=== PATIENT | male | born 1950 | race Hispanic/Latino ===

== ENCOUNTER 2018-11-03 13:32 | Outpatient (CLI) | payer MEDICARE ==
--- NOTE | 2018-11-03 14:38 | RAD ---
TWO VIEWS CHEST: Date: 11-03-18 Provided Clinical History: Chronic kidney disease. Comparison: 07-31-14 FINDINGS: Cardiac and mediastinal silhouette are within normal limits. No focal consolidation, pleural fluid or pneumothorax apparent. IMPRESSION: No evidence for an acute cardiopulmonary process. POS: TPC
== END 2018-11-03 13:33 | disposition home or self-care (01) ==
LOC: BICRAD 13:32
PROVIDERS: ATTEND Internal Medicine Nephrology
DX: N18.5 Chronic kidney disease, stage 5 (principal)
CPT/HCPCS: 36415; 71046; 80048; 86704; 86706; 86803; 87340

== ENCOUNTER 2018-11-14 13:34 | Outpatient (CLI) | payer MEDICARE ==
[2018-11-14 14:47] LABS: #Eosinphils 0.2 thou/uL (0.0-0.7); #Lymphocytes 1.4 thou/uL (1.20-3.40); #Monocytes 0.5 thou/uL (0.11-0.59); %Basophils 0.2 % (0.0-1.0); %Eosinophils 2.3 % (0.0-10.0); %Lymphocytes 19.7 % (21.0-51.0); %Neutrophils 70.9 % (42.0-75.0); Hemoglobin 12.5 g/dL (14.0-18.0); Mean Corpuscular HGB CONC 33.8 g/dL (32.0-36.0); Mean Corpuscular Hemoglobin 30.5 pg (27.0-31.0); Mean Corpuscular Volume 90.4 fL (78.0-98.0); Mean Platelet Volume 9.9 fL (7.4-10.4); Platelet Count 142 thou/uL (130-400); RBC Distribution Width 12.2 % (11.5-14.5); Red Blood Cell (RBC) Count 4.08 mill/uL (4.70-6.10); White Blood Cell (WBC) Count 7.1 thou/uL (4.8-10.8)
[2018-11-14 15:08] LABS: Anion Gap 13 mmol/L (10-20); BUN (Urea Nitrogen) 77 mg/dL (8.4-25.7); Calc. Creatinine Clearance 0 mL/min (70-130); Calcium 9.3 mg/dL (7.8-10.44); Carbon Dioxide 26 mmol/L (23-31); Chloride 102 mmol/L (98-107); Estimated GFR-MDRD 9; Glucose 290 mg/dL (80-115); Potassium 4.8 mmol/L (3.5-5.1); Sodium 136 mmol/L (136-145)
--- NOTE | 2018-11-15 22:57 | EKG ---
Test Reason : Blood Pressure : / mmHG Vent. Rate : 078 BPM Atrial Rate : 078 BPM P-R Int : 158 ms QRS Dur : 112 ms QT Int : 406 ms P-R-T Axes : 058 -39 012 degrees QTc Int : 462 ms Normal sinus rhythm Left axis deviation Abnormal ECG When compared with ECG of 18-AUG-2000 07:48, Questionable change in QRS duration Confirmed by Norm MANUEL ([id number]) on 11/15/2018 10:57:08 PM Referred By: ARMIN Confirmed By:Norm MANUEL
== END 2018-11-14 13:35 | disposition home or self-care (01) ==
LOC: LABBT 13:34
PROVIDERS: ATTEND Surgery
DX: Z01.818 Encounter for other preprocedural examination (principal); N18.6 End stage renal disease; K42.9 Umbilical hernia without obstruction or gangrene
CPT/HCPCS: 80048; 85025; 93005; 93010

== ENCOUNTER 2018-11-18 05:50 | Day surgery (SDC) | payer MEDICARE ==
[2018-11-14 13:59] VITALS: BMI 32.3
[2018-11-18] MEDS ORDERED: ceFAZolin Sodium (SDC) 2 GM/100 ML BAG ONE (06:16)
[2018-11-18] MEDS ORDERED: Fentanyl 100 MCG/2 ML VIAL ONE (06:44)
[2018-11-18] MEDS ORDERED: Bupivacaine/Epinephrine 0.25% 30 ML VIAL ONE (06:52)
[2018-11-18] MEDS ORDERED: Heparin 5,000 UNITS/ML VIAL ONE (06:53)
[2018-11-18] MEDS ORDERED: Heparin 10,000 UNITS/1 ML VIAL ONE (07:03)
[2018-11-18] MEDS ORDERED: HYDROcodone/Acetaminophen 5/325 mg Tablet ONE (11:39)
[2018-11-18] MEDS ORDERED: Ondansetron PF 4 MG/2 ML Vial ONE (17:05)
[2018-11-18] MEDS ORDERED: Rocuronium Bromide 10 MG/ML (10ML VIAL) ONE (17:05)
[2018-11-18] MEDS ORDERED: PROPOFOL 200 MG/20 ML VIAL ONE (17:05)
[2018-11-18] MEDS ORDERED: ePHEDrine 50 MG/ML VIAL ONE (17:05)
[2018-11-18] MEDS ORDERED: Glycopyrrolate 0.2 MG/ML 5 ML SYRINGE ONE (17:05)
[2018-11-18] MEDS ORDERED: Lidocaine 1% PF 5 ML VIAL ONE (17:05)
--- NOTE | 2018-11-21 12:40 | OP ---
DATE OF PROCEDURE: 11/18/2018 PROCEDURE PERFORMED: Repair of umbilical hernia with mesh and placement of laparoscopic peritoneal dialysis catheter. PREOPERATIVE DIAGNOSIS: End-stage renal disease and umbilical hernia. POSTOPERATIVE DIAGNOSIS: End-stage renal disease and umbilical hernia. HISTORY: Mr. Driver is a 68-year-old man with progressive renal failure, who will require dialysis in the near future. He has decided to proceed with peritoneal dialysis. He was found incidentally to have a small umbilical hernia, which was not reducible. The repair of this under the same anesthesia was recommended. DESCRIPTION OF PROCEDURE: After informed consent was obtained and appropriate preoperative antibiotics administered, the patient was taken to the operating room. He was placed in supine position and general endotracheal anesthesia was administered. He was prepped and draped in a standard sterile fashion and local anesthesia infused at the level of the umbilicus. A periumbilical incision was made and dissection carried down to the umbilical hernia. This was found to be primarily preperitoneal fat protruding through a 1 cm defect. Dissection was carried down through the preperitoneal fat of the peritoneum, which was entered. The trocar was placed through the hernia sac into the abdominal cavity and carbon dioxide gas insufflated to an intraabdominal pressure of 15, for which the patient tolerated well. The intraabdominal space was carefully examined. There was no evidence of trocar injury or significant adhesion. Local anesthesia was infused through skin and subcutaneous tissues on the patient's right abdomen and a 5 mm trocar placed under direct laparoscopic vision. The small intestines were easily able to be brought up out of the pelvis. There were no significant adhesions. The lower edge of the posterior rectus sheath was identified laparoscopically and local anesthesia infused through skin and subcutaneous tissues. A skin incision was made and an 8 mm trocar tunneled superiorly, medially, and then down through the posterior rectus sheath. A peritoneal dialysis catheter was placed through the 8 mm trocar and brought down into the pelvis, but did not reach down into the pelvic cul-de-sac. The trocar was removed and the fascial defect closed with a GraNee needle. An exit site inferior to the original site was identified and local anesthesia infused there. The trocar was tunneled directly inferior through this site and to the peritoneal dialysis catheter, easily down to the pelvis. The internal cup was positioned to be within the rectus muscle and the trocar was removed leaving the external cuff in the subcutaneous tissues. Saline was infused and easily drained through the peritoneal dialysis catheter. The catheter was flushed with heparin and clamped. The right-sided trocar was removed and the fascial defect closed under direct vision with a GraNee needle. The abdomen was allowed to desufflate and the umbilical trocar removed. The peritoneal incision was closed with 3-0 Monocryl suture and the preperitoneal space dissected free with blunt dissection. A 4.2 cm mesh was placed into the preperitoneal space and flattened out. The fascial defect was then closed with interrupted permanent suture incorporating a central strap into the closure. The subcutaneous tissues were then reapproximated with interrupted 3-0 Monocryl sutures and all skin incisions were closed with 4-0 Monocryl subcuticular sutures. The incision at the exit site of the peritoneal dialysis catheter was snugged up around the catheter and Dermabond was placed at all incision sites. Once the Dermabond was dry, pressure dressing was placed at the umbilicus. The peritoneal dialysis catheter was dressed with mesh and Tegaderm, and the patient was extubated and taken to Recovery in good condition. Estimated blood loss was minimal. There were no complications. There were no specimens. Job ID: [id number]
== END 2018-11-18 11:45 | disposition home or self-care (01) ==
LOC: SDC 05:50
PROVIDERS: ATTEND Surgery
PROC: 0WUF0JZ Supplement Abdominal Wall with Synthetic Substitute, Open Approach (ICD-10-PCS; principal; 2018-11-18)
PROC: 0WHG43Z Insertion of Infusion Device into Peritoneal Cavity, Percutaneous Endoscopic Approach (ICD-10-PCS; 2018-11-18)
DX: I12.0 Hypertensive chronic kidney disease with stage 5 chronic kidney disease or end stage renal disease (principal); E11.22 Type 2 diabetes mellitus with diabetic chronic kidney disease; N18.6 End stage renal disease; K42.9 Umbilical hernia without obstruction or gangrene; G47.30 Sleep apnea, unspecified; I42.9 Cardiomyopathy, unspecified; E11.21 Type 2 diabetes mellitus with diabetic nephropathy; Z79.4 Long term (current) use of insulin; Z79.899 Other long term (current) drug therapy
CPT/HCPCS: 36416; J0690; J1644; J2001; J2405; J2704; J3010; J3490

== ENCOUNTER 2019-02-21 08:22 | Outpatient (CLI) | payer MEDICARE ==
--- NOTE | 2019-02-21 09:35 | RAD ---
ABDOMEN ONE VIEW: HISTORY: Breakdown of dialysis catheter, not draining properly. FINDINGS: The bowel gas pattern is unremarkable. The visualized portions of the dialysis catheter appear intact . There are degenerative changes in the spine. POS: OFF
== END 2019-02-21 08:23 | disposition home or self-care (01) ==
LOC: BICRAD 08:22
PROVIDERS: ATTEND Internal Medicine Nephrology
DX: T85.611A Breakdown (mechanical) of intraperitoneal dialysis catheter, initial encounter (principal)
CPT/HCPCS: 74018

== ENCOUNTER 2019-04-14 05:57 | Day surgery (SDC) | payer MEDICARE ==
[2019-04-13 10:00] VITALS: BMI 33.3
[2019-04-14] MEDS ORDERED: Fentanyl 100 MCG/2 ML VIAL ONE (06:39)
[2019-04-14 06:51] LABS: #Eosinphils 0.1 thou/uL (0.0-0.7); #Lymphocytes 1.3 thou/uL (1.20-3.40); #Monocytes 0.6 thou/uL (0.11-0.59); #Neutrophils 5.3 thou/uL (1.40-6.50); %Basophils 0.2 % (0.0-1.0); %Eosinophils 1.9 % (0.0-10.0); %Lymphocytes 17.2 % (21.0-51.0); %Monocytes 7.6 % (0.0-10.0); %Neutrophils 73.1 % (42.0-75.0); Hemoglobin 14.1 g/dL (14.0-18.0); Mean Corpuscular HGB CONC 33.8 g/dL (32.0-36.0); Mean Corpuscular Hemoglobin 31.4 pg (27.0-31.0); Mean Corpuscular Volume 92.8 fL (78.0-98.0); Mean Platelet Volume 9.6 fL (7.4-10.4); Platelet Count 123 thou/uL (130-400); RBC Distribution Width 12.6 % (11.5-14.5); Red Blood Cell (RBC) Count 4.48 mill/uL (4.70-6.10); White Blood Cell (WBC) Count 7.2 thou/uL (4.8-10.8)
[2019-04-14 07:12] LABS: Anion Gap 12 mmol/L (10-20); BUN (Urea Nitrogen) 54 mg/dL (8.4-25.7); Calc. Creatinine Clearance 21 mL/min (70-130); Calcium 9.2 mg/dL (7.8-10.44); Carbon Dioxide 29 mmol/L (23-31); Chloride 101 mmol/L (98-107); Estimated GFR-MDRD 14; Glucose 163 mg/dL (80-115); Potassium 4.6 mmol/L (3.5-5.1); Sodium 137 mmol/L (136-145)
[2019-04-14] MEDS ORDERED: Lidocaine 1% w/Epinephrine 1:100K 20 ML VIAL ONE (07:21)
[2019-04-14] MEDS ORDERED: Bupivacaine 0.25% HCL 30 ML VIAL ONE (07:21)
[2019-04-14] MEDS ORDERED: Heparin 10,000 UNITS/1 ML VIAL ONE (07:21)
[2019-04-14] MEDS ORDERED: traMADol HCl 50 MG TAB ONE (10:30)
[2019-04-14] MEDS ORDERED: Lidocaine 1% PF 5 ML VIAL ONE (14:38)
[2019-04-14] MEDS ORDERED: Metoclopramide HCl 10 MG/2 ML VIAL ONE (14:38)
[2019-04-14] MEDS ORDERED: Glycopyrrolate 0.2 MG/ML 5 ML SYRINGE ONE (14:38)
[2019-04-14] MEDS ORDERED: Rocuronium Bromide 10 MG/ML (10ML VIAL) ONE (14:38)
[2019-04-14] MEDS ORDERED: Ondansetron PF 4 MG/2 ML Vial ONE (14:38)
[2019-04-14] MEDS ORDERED: PROPOFOL 200 MG/20 ML VIAL ONE (14:38)
--- NOTE | 2019-04-14 15:08 | PDOC.OP ---
Operative Note - Operative Note Operative Note: PROCEDURE: Diagnostic laparoscopy SURGEON: Chrissy Garza M.D. DATE: 04/14/2019 PREOPERATIVE DIAGNOSIS: Malfunctioning peritoneal dialysis catheter POSTOPERATIVE DIAGNOSIS: Malfunctioning peritoneal dialysis catheter without adhesions or malpositioning HISTORY: Patient with peritoneal dialysis catheter which infuses fine but has difficulty draining. On KUB this did not appear to be positioned as low in the pelvis as it is ideal. Laxatives and Cathflo have not helped the situation. Recommendation was made to proceed with laparoscopic revision versus replacement of the catheter. PROCEDURE IN DETAIL: After informed consent was obtained and appropriate and buttocks were administered the patient was taken to the operating room where he was placed in supine position and general anesthesia administered. The peritoneal dialysis catheter was soaked in disinfectant for several minutes and then the abdomen and catheter prepped and draped in standard sterile fashion. Carbon dioxide gas was infused through the peritoneal dialysis catheter into the abdominal cavity until an intra-abdominal pressure 15 was reached. Local anesthesia was infused the skin and subcutaneous tissues at the right upper quadrant and left upper quadrant and 5 mm laparoscopic trochars placed. The first one was placed using a ClearView port and the second was placed under direct laparoscopic vision. The patient was placed in Trendelenburg and the dialysis catheter examined. This was clearly in the deepest part of the pelvis between the bladder and the colon and there were no small bowel loops or omentum in the vicinity. There were multipe appendices epiploica of the sigmoid colon but these were also not in the vicinity of the catheter. The omentum was too short to reach down into the vicinity of the catheter. The catheter was pulled up out of the pelvis and examined and there was no evidence of clogging of the holes or the lumen or any scar tissue around the catheter. The end of the catheter was then placed back into the sulcus and flushed with heparinized saline and a new sterile extension tubing set placed to the external portion. The right upper quadrant trocar was removed and a 0 Vicryl GraNee suture used to bridge the fascial defect under direct laparoscopic vision. The trocar was then replaced through the same hole and the left upper quadrant trocar removed and the fascial defect bridged with a 0 Vicryl suture on a GraNee needle under direct laparoscopic vision. This was fastened down and gas desufflated through the right upper quadrant trocar. Once the abdomen was desufflated the fascial suture at the right upper quadrant trocar was secured as well. Skin incisions were closed with 4-0 Monocryl, and Dermabond dressings were placed. Estimated blood loss was minimal. There were no complications. There were no specimens..
== END 2019-04-14 10:49 | disposition home or self-care (01) ==
LOC: SDC 05:57
PROVIDERS: ATTEND Surgery
PROC: 0WJG4ZZ Inspection of Peritoneal Cavity, Percutaneous Endoscopic Approach (ICD-10-PCS; principal; 2019-04-14)
DX: T85.691A Other mechanical complication of intraperitoneal dialysis catheter, initial encounter (principal); I12.0 Hypertensive chronic kidney disease with stage 5 chronic kidney disease or end stage renal disease; E11.22 Type 2 diabetes mellitus with diabetic chronic kidney disease; N18.6 End stage renal disease; Z79.4 Long term (current) use of insulin; Z79.82 Long term (current) use of aspirin; Z79.899 Other long term (current) drug therapy; Z99.2 Dependence on renal dialysis
CPT/HCPCS: 36415; 80048; 85025; J0690; J1642; J1644; J2001; J2405; J2704; J2765; J3010; S0020

== ENCOUNTER 2021-01-12 11:54 | Emergency (ER) | payer MEDICARE ==
[2021-01-12 13:08] LABS: #Lymphocytes 0.4 thou/uL (1.20-3.40); #Monocytes 0.8 thou/uL (0.11-0.59); #Neutrophils 11.3 thou/uL (1.40-6.50); %Basophils 0.1 % (0.0-1.0); %Lymphocytes 3.1 % (21.0-51.0); %Monocytes 6.4 % (0.0-10.0); %Neutrophils 90.3 % (42.0-75.0); Mean Corpuscular HGB CONC 35.6 g/dL (32.0-36.0); Mean Corpuscular Hemoglobin 32.2 pg (27.0-31.0); Mean Corpuscular Volume 90.3 fL (78.0-98.0); Mean Platelet Volume 8.3 fL (7.4-10.4); Platelet Count 145 thou/uL (130-400); RBC Distribution Width 11.9 % (11.5-14.5); Red Blood Cell (RBC) Count 4.03 mill/uL (4.70-6.10); White Blood Cell (WBC) Count 12.5 thou/uL (4.8-10.8)
[2021-01-12 13:25] LABS: ALT (SGPT) 48 U/L (8-55); AST (SGOT) 43 U/L (5-34); Albumin 3.1 g/dL (3.4-4.8); Alkaline Phosphatase 86 U/L (40-110); Anion Gap 22 mmol/L (10-20); BUN (Urea Nitrogen) 111 mg/dL (8.4-25.7); Bilirubin, Total 0.5 mg/dL (0.2-1.2); Calc. Creatinine Clearance 0 mL/min (70-130); Calcium 7.1 mg/dL (7.8-10.44); Carbon Dioxide 21 mmol/L (23-31); Chloride 89 mmol/L (98-107); Globulin 3.3 g/dL (2.4-3.5); Glucose 152 mg/dL (80-115); Potassium 3.7 mmol/L (3.5-5.1); Protein, Total 6.4 g/dL (5.8-8.1); Sodium 128 mmol/L (136-145)
== END 2021-01-12 14:30 | disposition home or self-care (01) ==
LOC: ERS 11:54
DX: U07.1 COVID-19 (principal); E11.22 Type 2 diabetes mellitus with diabetic chronic kidney disease; E11.65 Type 2 diabetes mellitus with hyperglycemia; N18.6 End stage renal disease; E78.5 Hyperlipidemia, unspecified; E78.00 Pure hypercholesterolemia, unspecified
CPT/HCPCS: 36415; 36416; 80053; 85025; 99285

== ENCOUNTER 2021-01-21 06:32 | Inpatient (IN) | payer MEDICARE, OTHER ==
[2021-01-21 07:19] LABS: Hemoglobin 12.3 g/dL (14.0-18.0); Mean Corpuscular HGB CONC 34.9 g/dL (32.0-36.0); Mean Corpuscular Volume 91.7 fL (78.0-98.0); Mean Platelet Volume 7.2 fL (7.4-10.4); Platelet Count 357 thou/uL (130-400); RBC Distribution Width 11.9 % (11.5-14.5); Red Blood Cell (RBC) Count 3.85 mill/uL (4.70-6.10); White Blood Cell (WBC) Count 36.6 thou/uL (4.8-10.8)
[2021-01-21 07:49] LABS: BUN (Urea Nitrogen) 128 mg/dL (8.4-25.7)
[2021-01-21 07:50] LABS: Band 9 % (5-11); Lymphocytes 3 % (21-51); MDiff Complete? YES; Monocytes 6 % (0-10); Neutrophil 82 % (42-75); Platelet Morphology Comment Appears Adequate; RBC Morphology Normal
[2021-01-21] MEDS ORDERED: Piperacillin/Tazobactam 3.375 GM VIAL ONE (07:55)
[2021-01-21] MEDS ORDERED: Vancomycin 1 GM/200 ML BAG ONE (07:55)
[2021-01-21 07:58] LABS: CKMB 1.9 ng/mL (0-6.6)
[2021-01-21 07:59] LABS: ALT (SGPT) 45 U/L (8-55); AST (SGOT) 29 U/L (5-34); Albumin 2.7 g/dL (3.4-4.8); Alkaline Phosphatase 129 U/L (40-110); Anion Gap 26 mmol/L (10-20); Bilirubin, Total 0.5 mg/dL (0.2-1.2); Calc. Creatinine Clearance 0 mL/min (70-130); Calcium 7.3 mg/dL (7.8-10.44); Carbon Dioxide 19 mmol/L (23-31); Chloride 90 mmol/L (98-107); Globulin 4.5 g/dL (2.4-3.5); Glucose 119 mg/dL (80-115); Potassium 3.6 mmol/L (3.5-5.1); Protein, Total 7.2 g/dL (5.8-8.1); Sodium 131 mmol/L (136-145)
[2021-01-21] MEDS ORDERED: Piperacillin/Tazobactam 4.5 GM in Sodium Chloride 0.9% 100 ML IVPB SCH (08:00)
[2021-01-21] MEDS ORDERED: Iopamidol-370 76% 500 ML 1 ML ONE (08:58)
[2021-01-21] MEDS ORDERED: Guaifenesin DM 100-10/5 ML UDCUP PO PRN (09:08)
[2021-01-21] MEDS ORDERED: Calcium Carbonate 500 MG ChewTAB PO PRN (09:08)
[2021-01-21] MEDS ORDERED: HYDROcodone/Acetaminophen 5/325 mg Tablet PO PRN (09:08)
[2021-01-21] MEDS ORDERED: Senokot S 8.6-50 MG TAB PO PRN (09:08)
[2021-01-21] MEDS ORDERED: Bisacodyl 10 MG SUPP PR PRN (09:08)
[2021-01-21] MEDS ORDERED: Dextrose 50% Abboject 50 ML SYRINGE SLOW IVP PRN (09:08)
[2021-01-21] MEDS ORDERED: Acetaminophen 325 MG TAB PO PRN (09:08)
[2021-01-21] MEDS ORDERED: Dextrose 5% in Water 1,000 ML IV PRN (09:08)
[2021-01-21] MEDS ORDERED: Ondansetron PF 4 MG/2 ML Vial IVP PRN (09:08)
[2021-01-21 10:42] LABS: SARS-CoV-2 NAA Rapid Test DETECTED (NotDetected)
[2021-01-21 10:47] LABS: Troponin I 0.054 ng/mL (< 0.028)
[2021-01-21] MEDS ORDERED: Levofloxacin 750 mg/D5W 250 MG in Premix Bag 1 BAG IVPB SCH (11:00)
[2021-01-21 11:07] VITALS: BMI 31.4
[2021-01-21] MEDS: Sodium Chloride 0.9% 1,000 ML IV SCH (11:44)
[2021-01-21] MEDS: HumaLOG 300 UNITS/3 ML VIAL SC PRN ×3 (11:46→20:57)
[2021-01-21] MEDS ORDERED: methylPREDNISolone Sod Succ/PF 125 MG/2 ML VIAL IVP SCH (12:00)
[2021-01-21] MEDS ORDERED: Ipratropium/Albuterol Sulfate 4 GM AER IH SCH (13:00)
[2021-01-21 13:40] LABS: Troponin I 0.066 ng/mL (< 0.028)
[2021-01-21] MEDS: Albuterol 200 PUFF (6.7GM INHALER) INH SCH ×2 (14:05→18:04)
[2021-01-21] MEDS: Benzonatate 100 MG CAP PO SCH ×2 (14:06→20:57)
[2021-01-21 15:19] LABS: BF Color Colorless; Clarity Clear (Clear); Tube # EDTA
[2021-01-21 15:25] LABS: RBC Count-Automated (BF) 0 /cu.mm; WBC/Nucleated-Auto (BF) 18 uL
[2021-01-21 15:48] LABS: BF Segmented Neutrophils 76 %; Cell Count Non Hematic 23 %; Lymphocytes 1 %
[2021-01-21] MEDS: Heparin 5,000 UNITS/ML VIAL SC SCH (20:57)
[2021-01-21] MEDS: guaiFENesin ER 600 MG TAB PO SCH (20:57)
[2021-01-22] MEDS: Sodium Chloride 0.9% 1,000 ML IV SCH ×2 (04:15→18:46)
[2021-01-22] MEDS: Albuterol 200 PUFF (6.7GM INHALER) INH SCH ×4 (05:05→18:52)
[2021-01-22 06:22] LABS: ALT (SGPT) 34 U/L (8-55); AST (SGOT) 14 U/L (5-34); Albumin 2.4 g/dL (3.4-4.8); Alkaline Phosphatase 158 U/L (40-110); Anion Gap 22 mmol/L (10-20); Bilirubin, Total 0.3 mg/dL (0.2-1.2); Calc. Creatinine Clearance 10 mL/min (70-130); Calcium 6.7 mg/dL (7.8-10.44); Carbon Dioxide 20 mmol/L (23-31); Chloride 89 mmol/L (98-107); Globulin 3.4 g/dL (2.4-3.5); Potassium 4.2 mmol/L (3.5-5.1); Protein, Total 5.8 g/dL (5.8-8.1); Sodium 127 mmol/L (136-145)
[2021-01-22] MEDS: HumaLOG 300 UNITS/3 ML VIAL SC PRN ×4 (06:22→20:39)
[2021-01-22 06:27] LABS: Glucose 592 mg/dL (80-115)
[2021-01-22 06:29] LABS: Band 1 % (5-11); Hemoglobin 10.3 g/dL (14.0-18.0); Hypochromia SLIGHT = 6-15 cells (100X) (0-5/hpf); Lymphocytes 4 % (21-51); MDiff Complete? YES; Mean Corpuscular HGB CONC 34.5 g/dL (32.0-36.0); Mean Corpuscular Hemoglobin 32.5 pg (27.0-31.0); Mean Corpuscular Volume 94.4 fL (78.0-98.0); Mean Platelet Volume 7.5 fL (7.4-10.4); Monocytes 6 % (0-10); Neutrophil 89 % (42-75); Platelet Count 312 thou/uL (130-400); Platelet Morphology Comment Appears Adequate; RBC Distribution Width 11.7 % (11.5-14.5); Red Blood Cell (RBC) Count 3.16 mill/uL (4.70-6.10); White Blood Cell (WBC) Count 20.9 thou/uL (4.8-10.8)
[2021-01-22 06:35] LABS: BUN (Urea Nitrogen) 136 mg/dL (8.4-25.7)
[2021-01-22] MEDS ORDERED: Lantus 1000 UNITS/10 ML VIAL SC SCH ×3 (06:59→21:00)
[2021-01-22] MEDS: Tamsulosin HCl 0.4 MG CAP PO SCH (09:00)
[2021-01-22] MEDS: Aspirin 81 mg Enteric Coated Tablet PO SCH (09:00)
[2021-01-22] MEDS: Carvedilol 6.25 MG TAB PO SCH ×2 (09:00→20:24)
[2021-01-22] MEDS: Oxybutynin ER 5 MG TAB PO SCH (09:01)
[2021-01-22] MEDS: Heparin 5,000 UNITS/ML VIAL SC SCH ×2 (09:01→20:22)
[2021-01-22] MEDS: guaiFENesin ER 600 MG TAB PO SCH ×2 (09:01→20:24)
[2021-01-22] MEDS: Folic Acid/Vit B Comp W-C PO SCH (09:01)
[2021-01-22] MEDS: Benzonatate 100 MG CAP PO SCH ×3 (09:01→20:24)
[2021-01-22] MEDS: Dexamethasone 4 mg/ml Vial SLOW IVP SCH (09:01)
[2021-01-22] MEDS ORDERED: FLU VACC QS2021-22(65YR UP)/PF 240 MCG/0.7 ML SYRINGE IM ONE (12:15)
[2021-01-22] MEDS: Atorvastatin Calcium 40 MG TAB PO SCH (20:24)
[2021-01-23] MEDS: Albuterol 200 PUFF (6.7GM INHALER) INH SCH ×4 (01:05→18:44)
[2021-01-23 06:21] LABS: Anion Gap 20 mmol/L (10-20); CRP (Inflammatory) 10.17 mg/dL (= or < 0.5); Calc. Creatinine Clearance 11 mL/min (70-130); Calcium 6.7 mg/dL (7.8-10.44); Carbon Dioxide 20 mmol/L (23-31); Chloride 94 mmol/L (98-107); Glucose 525 mg/dL (80-115); Sodium 130 mmol/L (136-145)
[2021-01-23] MEDS: HumaLOG 300 UNITS/3 ML VIAL SC PRN ×3 (06:21→17:16)
[2021-01-23 06:34] LABS: BUN (Urea Nitrogen) 111 mg/dL (8.4-25.7)
[2021-01-23] MEDS: HumuLIN 70/30 (300 UNITS/3 ML VIAL) SC SCH ×2 (08:23→21:10)
[2021-01-23] MEDS: Carvedilol 6.25 MG TAB PO SCH ×2 (08:25→21:07)
[2021-01-23] MEDS: Aspirin 81 mg Enteric Coated Tablet PO SCH (08:25)
[2021-01-23] MEDS: Benzonatate 100 MG CAP PO SCH ×3 (08:25→21:07)
[2021-01-23] MEDS: Tamsulosin HCl 0.4 MG CAP PO SCH (08:25)
[2021-01-23] MEDS: Folic Acid/Vit B Comp W-C PO SCH (08:25)
[2021-01-23] MEDS: Oxybutynin ER 5 MG TAB PO SCH (08:25)
[2021-01-23] MEDS: Lantus 1000 UNITS/10 ML VIAL SC SCH ×2 (08:26→21:09)
[2021-01-23] MEDS: guaiFENesin ER 600 MG TAB PO SCH ×2 (08:26→21:08)
[2021-01-23] MEDS: Heparin 5,000 UNITS/ML VIAL SC SCH ×2 (08:26→21:08)
[2021-01-23] MEDS: Dexamethasone 4 mg/ml Vial SLOW IVP SCH (08:26)
[2021-01-23] MEDS ORDERED: Heparin 1,000 UNITS/ML (10 ml) 6,000 UNITS in PERITON.DIALYSIS 7-2.5 % DEXTR 6,000 ML FS SCH (09:15)
[2021-01-23] MEDS: Sodium Chloride 0.9% 1,000 ML IV SCH (10:52)
[2021-01-23] MEDS: Calcium Acetate 667 MG CAP PO SCH ×2 (12:01→17:17)
[2021-01-23] MEDS: Atorvastatin Calcium 40 MG TAB PO SCH (21:08)
[2021-01-24] MEDS: Albuterol 200 PUFF (6.7GM INHALER) INH SCH ×2 (02:21→08:34)
[2021-01-24] MEDS: Sodium Chloride 0.9% 1,000 ML IV SCH (03:35)
[2021-01-24 06:20] LABS: #Lymphocytes 0.4 thou/uL (1.20-3.40); #Monocytes 0.5 thou/uL (0.11-0.59); #Neutrophils 11.2 thou/uL (1.40-6.50); %Basophils 0.1 % (0.0-1.0); %Eosinophils 0.2 % (0.0-10.0); %Lymphocytes 3.1 % (21.0-51.0); %Monocytes 4.4 % (0.0-10.0); %Neutrophils 92.2 % (42.0-75.0); Mean Corpuscular Volume 94.1 fL (78.0-98.0); Mean Platelet Volume 7.1 fL (7.4-10.4); Platelet Count 365 thou/uL (130-400); RBC Distribution Width 11.8 % (11.5-14.5); Red Blood Cell (RBC) Count 3.43 mill/uL (4.70-6.10); White Blood Cell (WBC) Count 12.2 thou/uL (4.8-10.8)
[2021-01-24 06:37] LABS: Anion Gap 22 mmol/L (10-20); BUN (Urea Nitrogen) 120 mg/dL (8.4-25.7); CRP (Inflammatory) 6.93 mg/dL (= or < 0.5); Calc. Creatinine Clearance 12 mL/min (70-130); Calcium 6.9 mg/dL (7.8-10.44); Carbon Dioxide 18 mmol/L (23-31); Chloride 98 mmol/L (98-107); Glucose 325 mg/dL (80-115); Potassium 4.2 mmol/L (3.5-5.1); Sodium 134 mmol/L (136-145)
[2021-01-24 06:49] LABS: Phosphorus 9.5 mg/dL (2.3-4.7)
[2021-01-24] MEDS: Calcium Acetate 667 MG CAP PO SCH ×2 (08:31→11:48)
[2021-01-24] MEDS: Aspirin 81 mg Enteric Coated Tablet PO SCH (08:31)
[2021-01-24] MEDS: Benzonatate 100 MG CAP PO SCH (08:31)
[2021-01-24] MEDS: Folic Acid/Vit B Comp W-C PO SCH (08:31)
[2021-01-24] MEDS: guaiFENesin ER 600 MG TAB PO SCH (08:31)
[2021-01-24] MEDS: Carvedilol 6.25 MG TAB PO SCH (08:31)
[2021-01-24] MEDS: Heparin 5,000 UNITS/ML VIAL SC SCH (08:33)
[2021-01-24] MEDS: Tamsulosin HCl 0.4 MG CAP PO SCH (08:33)
[2021-01-24] MEDS: Dexamethasone 4 mg/ml Vial SLOW IVP SCH (08:33)
[2021-01-24] MEDS: Oxybutynin ER 5 MG TAB PO SCH (08:33)
[2021-01-24] MEDS: HumuLIN 70/30 (300 UNITS/3 ML VIAL) SC SCH (08:34)
[2021-01-24] MEDS: Lantus 1000 UNITS/10 ML VIAL SC SCH (08:34)
[2021-01-24 11:34] VITALS: BP 133/66; TEMP 97.9
[2021-01-24] MEDS: HumaLOG 300 UNITS/3 ML VIAL SC PRN (11:48)
== END 2021-01-24 14:07 | disposition home or self-care (01) | DRG 871 ==
LOC: ERS 06:32 → 2SW 09:07
PROVIDERS: ADMIT Internal Medicine; ATTEND Internal Medicine
PROC: 8E0ZXY6 Isolation (ICD-10-PCS; principal; 2021-01-21)
DX: A41.89 Other specified sepsis (principal); U07.1 COVID-19; J12.82 Pneumonia due to coronavirus disease 2019; J96.01 Acute respiratory failure with hypoxia; N18.6 End stage renal disease; I12.0 Hypertensive chronic kidney disease with stage 5 chronic kidney disease or end stage renal disease; E11.22 Type 2 diabetes mellitus with diabetic chronic kidney disease; E11.649 Type 2 diabetes mellitus with hypoglycemia without coma; E78.5 Hyperlipidemia, unspecified; E78.00 Pure hypercholesterolemia, unspecified; N40.0 Benign prostatic hyperplasia without lower urinary tract symptoms; E11.40 Type 2 diabetes mellitus with diabetic neuropathy, unspecified; D64.9 Anemia, unspecified; E11.65 Type 2 diabetes mellitus with hyperglycemia; T38.0X5A Adverse effect of glucocorticoids and synthetic analogues, initial encounter; E83.51 Hypocalcemia; Z99.2 Dependence on renal dialysis
CPT/HCPCS: 36415; 36416; 71275; 80048; 80053; 82553; 83605; 83970; 84100; 84484; 85025; 85060; 86140; 87040; 89051; 90945; 93005; 96365; 96367; G0257; J1100; J1644; J1815; J1956; J2543; J2930; J3370; J3490; J7050; Q9967; U0002